=== PATIENT | male | born 1995 ===

== ENCOUNTER 2018-02-07 08:04 | Outpatient (CLI) | payer OTHER ==
[~2018-02-07] VITALS: Ht 152.4 cm; Wt 81.6 kg
== END 2018-02-07 08:20 | disposition home or self-care (01) ==
LOC: OFIC 805 08:04
DX: J30.89 Other allergic rhinitis (principal); H69.83 Other specified disorders of Eustachian tube, bilateral; H70.11 Chronic mastoiditis, right ear; H92.01 Otalgia, right ear; H61.321 Acquired stenosis of right external ear canal secondary to inflammation and infection; H71.11 Cholesteatoma of tympanum, right ear; H90.71 Mixed conductive and sensorineural hearing loss, unilateral, right ear, with unrestricted hearing on the contralateral side; H61.23 Impacted cerumen, bilateral

== ENCOUNTER 2018-02-28 07:50 | Outpatient (CLI) | payer OTHER ==
[~2018-02-28] VITALS: Ht 152.4 cm; Wt 81.6 kg
== END 2018-02-28 08:10 | disposition home or self-care (01) ==
LOC: OFIC 805 07:50
DX: H71.11 Cholesteatoma of tympanum, right ear (principal); H61.321 Acquired stenosis of right external ear canal secondary to inflammation and infection; H90.71 Mixed conductive and sensorineural hearing loss, unilateral, right ear, with unrestricted hearing on the contralateral side; H92.01 Otalgia, right ear; H70.11 Chronic mastoiditis, right ear

== ENCOUNTER 2018-03-21 09:33 | Outpatient (CLI) | payer OTHER ==
[~2018-03-21] VITALS: Ht 152.4 cm; Wt 81.6 kg
== END 2018-03-21 09:45 | disposition home or self-care (01) ==
LOC: OFIC 805 09:33
DX: H70.11 Chronic mastoiditis, right ear (principal); H90.71 Mixed conductive and sensorineural hearing loss, unilateral, right ear, with unrestricted hearing on the contralateral side

== ENCOUNTER 2018-04-11 07:42 | Outpatient (CLI) | payer OTHER ==
[~2018-04-11] VITALS: Ht 152.4 cm; Wt 79.4 kg
== END 2018-04-11 08:00 | disposition home or self-care (01) ==
LOC: OFIC 805 07:42
DX: H92.01 Otalgia, right ear (principal); H70.11 Chronic mastoiditis, right ear

== ENCOUNTER 2018-06-06 08:37 | Outpatient (CLI) | payer OTHER ==
[~2018-06-06] VITALS: Ht 152.4 cm; Wt 81.6 kg
== END 2018-06-06 09:00 | disposition home or self-care (01) ==
LOC: OFIC 805 08:37
DX: H69.83 Other specified disorders of Eustachian tube, bilateral (principal); H70.11 Chronic mastoiditis, right ear

== ENCOUNTER 2018-07-04 08:33 | Outpatient (CLI) | payer OTHER ==
[~2018-07-04] VITALS: Ht 152.4 cm; Wt 81.6 kg
== END 2018-07-04 08:50 | disposition home or self-care (01) ==
LOC: OFIC 805 08:33
DX: H70.11 Chronic mastoiditis, right ear (principal); H92.01 Otalgia, right ear; H69.83 Other specified disorders of Eustachian tube, bilateral

== ENCOUNTER 2018-08-27 12:06 | Outpatient (CLI) | payer OTHER | END 2018-08-27 12:20 | disposition home or self-care (01) | LOC: OFIC 805 12:06 | DX: J31.0 Chronic rhinitis (principal); H69.83 Other specified disorders of Eustachian tube, bilateral; H70.11 Chronic mastoiditis, right ear; H92.01 Otalgia, right ear; H61.32 Acquired stenosis of external ear canal secondary to inflammation and infection; H71.11 Cholesteatoma of tympanum, right ear; H90.71 Mixed conductive and sensorineural hearing loss, unilateral, right ear, with unrestricted hearing on the contralateral side; H74.43 Polyp of middle ear, bilateral ==

== ENCOUNTER 2018-09-05 07:56 | Outpatient (CLI) | payer OTHER ==
[~2018-09-05] VITALS: Ht 152.4 cm; Wt 79.4 kg
== END 2018-09-05 08:15 | disposition home or self-care (01) ==
LOC: OFIC 805 07:56
DX: H70.11 Chronic mastoiditis, right ear (principal)

== ENCOUNTER 2019-01-16 07:19 | Outpatient (CLI) | payer OTHER ==
[~2019-01-16] VITALS: Ht 152.4 cm; Wt 81.6 kg
== END 2019-01-16 09:00 | disposition home or self-care (01) ==
LOC: OFIC 805 07:19
DX: H92.01 Otalgia, right ear (principal); H70.11 Chronic mastoiditis, right ear; H90.71 Mixed conductive and sensorineural hearing loss, unilateral, right ear, with unrestricted hearing on the contralateral side

== ENCOUNTER 2020-06-22 11:05 | Outpatient (CLI) | payer OTHER | END 2020-06-22 13:00 | disposition home or self-care (01) | LOC: OFIC 805 11:05 | PROVIDERS: ATTEND Otolaryngology Otology & Neurotology | DX: J31.0 Chronic rhinitis (principal); H90.71 Mixed conductive and sensorineural hearing loss, unilateral, right ear, with unrestricted hearing on the contralateral side; H71.11 Cholesteatoma of tympanum, right ear; H92.01 Otalgia, right ear ==